=== PATIENT | male | born 1975 | race American Indian/Alaskan Native ===

== ENCOUNTER 2019-03-26 07:57 | Emergency (ER) | payer SELFPAY ==
[2019-03-26] MEDS ORDERED: Sodium Chloride 0.9% 10 ML Syringe FLUSH PRN ×2 (08:04→08:09)
[2019-03-26] MEDS ORDERED: Iopamidol 612 MG/ML 50 ML SDV IVPUSH ONE (08:09)
[2019-03-26] MEDS ORDERED: Iopamidol 612 MG/ML 100 ML Bottle IVPUSH ONE (08:09)
[2019-03-26] MEDS ORDERED: Lidocaine 1% with EPINEPHrine 1:100,000 20 ML MDV INJECT ONE (08:42)
--- NOTE | 2019-03-26 09:26 | CT ---
CT thoracic spine Technique: Multiple axial sections through the thoracic spine were obtained. Reconstructed coronal and sagittal images were obtained. Findings: Minimal anterior wedging of the superior endplate of T1 is noted. Other vertebral body heights are maintained. Other disc spaces are maintained. No fracture is otherwise seen. No abnormal subluxation is seen. No central canal stenosis or neural foraminal stenosis is seen. Soft tissue windows were obtained which show no soft tissue swelling around the spine. No traumatic disc herniation is identified. Impression: 1. Slight anterior wedging of the superior endplate of T1. This may be acute if patient has correlating symptoms. MRI could confirm if clinically needed. 2. Other portions of the CT thoracic spine study are unremarkable. Diagnostic code #3 This report was dictated in [place] Standard Time
--- NOTE | 2019-03-26 09:26 | CT ---
CT cervical spine Technique: Multiple axial sections were obtained from above C1 inferiorly to the bottom of T1. Reconstructed sagittal and coronal images were reviewed. Comparison: No prior cervical spine imaging is available. Findings: Vertebral body heights and disc spaces are preserved. Vertebral bodies and posterior arches are intact. No fracture is appreciated. No abnormal subluxation is seen. Mild degenerative change is noted within the lower apophyseal joints. Impression: 1. Minimal degenerative change. 2. No acute fracture or abnormal subluxation is seen on CT study of the cervical spine. Diagnostic code #2 This report was dictated in [place] Standard Time
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
--- NOTE | 2019-03-26 09:26 | CT ---
CT chest Technique: Multiple axial sections were obtained from above the lung apices inferiorly through the lung bases. Intravenous contrast was utilized. Comparison: No prior chest imaging is available. Findings: Aorta shows no aneurysm. Mediastinum and hilar region show no hematoma. No axillary adenopathy is seen. No pericardial thickening is identified. Minimal dependent atelectasis is noted posteriorly within both lungs. Lungs show no pulmonary contusions. No pleural effusions or pneumothorax is seen. Bone window settings were reviewed. No acute osseous finding is appreciated. Impression: 1. Nothing acute is appreciated on CT study of the chest. Diagnostic code #1 CT abdomen and pelvis Technique: Multiple axial sections were obtained from above the dome of the diaphragm inferiorly through the pubic symphysis. Intravenous contrast was utilized. No oral contrast has been given. Comparison: No prior abdominal imaging is available. Findings: Liver contains no focal abnormality. Spleen appears within normal limits. Adrenal glands show no nodule. Pancreas appears normal. Surgical clips are seen from prior cholecystectomy. Kidneys show symmetric contrast enhancement without hydronephrosis or mass. Aorta shows no aneurysm. No retroperitoneal adenopathy or mesenteric abnormalities are seen. No pelvic mass or adenopathy is seen. Small fat-containing bilateral inguinal hernias are noted. No free fluid or inflammatory change is seen. Appendix is seen which is normal. Bone window settings were reviewed. Mild degenerative change seen within the lower lumbar spine. No acute osseous finding is appreciated. Impression: 1. Nothing acute is appreciated on CT study of the abdomen and pelvis. 2. Other findings which are believed to be incidental. Diagnostic code #2 This report was dictated in [place] Standard Time
[2019-03-26] MEDS ORDERED: HYDROmorphone 1 MG/ML Syringe IVPUSH ONE (09:50)
--- NOTE | 2019-03-26 09:57 | CR ---
Left ankle: Four views of the left ankle were obtained. Comparison: No prior ankle exam. Ankle mortise is symmetric. Small plantar spur is noted. No acute fracture, dislocation or other bony abnormality is identified. Impression: 1. Small plantar spur. 2. Left ankle exam is otherwise unremarkable. Diagnostic code #2 This report was dictated in [place] Standard Time
--- NOTE | 2019-03-26 09:57 | CR ---
Right tibia and fibula: AP and lateral views of the right tibia and fibula were obtained. Comparison: No prior tibia or fibula study is available. No fracture or other bony abnormality is identified. Impression: 1. Nothing acute is appreciated on two-view right tibia and fibula exam. Diagnostic code #1 This report was dictated in [place] Standard Time
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
== END 2019-03-26 13:51 | disposition home or self-care (01) ==
LOC: JD.ED 07:57
DX: S22.019A Unspecified fracture of first thoracic vertebra, initial encounter for closed fracture (principal); S91.012A Laceration without foreign body, left ankle, initial encounter; S80.11XA Contusion of right lower leg, initial encounter; Z88.8 Allergy status to other drugs, medicaments and biological substances; V89.2XXA Person injured in unspecified motor-vehicle accident, traffic, initial encounter
CPT/HCPCS: 12002; 36415; 70450; 71260; 72125; 72128; 73590; 73610; 74177; 80053; 83690; 85025; 96374; 99285; J1170; Q9967; 99284

== ENCOUNTER 2019-03-29 18:46 | Emergency (ER) | payer MEDICAID, OTHER ==
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
[2019-03-29] MEDS ORDERED: FLU Vacc QS2019-20(6MOS+)/PF 60 MCG/0.5 ML SYRINGE IM ONE (21:00)
--- NOTE | 2019-03-30 07:13 | CT ---
CT cervical spine Technique: Multiple axial sections were obtained from above C1 inferiorly to the top of T4. Reconstructed sagittal and coronal images were reviewed. Comparison: No prior cervical spine imaging is available. Findings: Anterior wedging noted within the superior endplate of T1. Small detached anterior and superior fragment is seen. Findings could be acute. There is widening between the spinous processes of C7 and T1 which may possibly represent interspinous ligament rupture. MRI would confirm. Other vertebral body heights are maintained. Disc spaces are preserved. Artifact noted within the lower cervical and upper thoracic spine due to photon attenuation from the patient body habitus. No additional fracture is seen. No bony central or bony neural foraminal stenosis is noted. Visualized lung apices are clear. Impression: 1. Anterior wedging and small anterior and superior detached fragment. These findings may be acute. In addition, there are findings suggesting rupture of the interspinous ligament at C7-T1. MRI would be confirmatory. MRI studies should include a STIR sequence. 2. No additional abnormality is seen on CT study of the cervical spine. Diagnostic code #5 This report was dictated in Mountain Standard Time I agree with preliminary report from [facility], finalized on 03/29/19, 11:05 PM Central Time
== END 2019-03-30 00:10 ==
LOC: JD.ED 18:46 → EDSEX 18:46 → MERGE 18:46 → JD.ED 03-30 00:10
DX: S19.9XXA Unspecified injury of neck, initial encounter (principal); E66.9 Obesity, unspecified; Z68.35 Body mass index [BMI] 35.0-35.9, adult; Z23 Encounter for immunization; Z88.8 Allergy status to other drugs, medicaments and biological substances; Z88.1 Allergy status to other antibiotic agents; V57.5XXA Driver of pick-up truck or van injured in collision with fixed or stationary object in traffic accident, initial encounter; Y92.410 Unspecified street and highway as the place of occurrence of the external cause
CPT/HCPCS: 72125; 72125-26; 90686; 99284; 99285-25; G0008

== ENCOUNTER 2019-05-13 00:55 | Emergency (ER) | payer OTHER ==
[2019-05-13] MEDS ORDERED: Dicyclomine 10 MG Cap PO STA (01:27)
[2019-05-13] MEDS ORDERED: Ondansetron 4 MG/2 ML SDV IVPUSH ONE (01:28)
[2019-05-13] MEDS ORDERED: Lactated Ringers 1,000 ML IV ONE (01:28)
[2019-05-13] MEDS ORDERED: LORazepam 2 MG/ML SDV IVPUSH STA (01:29)
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
[2019-05-13] MEDS ORDERED: Famotidine 20 MG/2 ML SDV IVPUSH STA (01:51)
--- NOTE | 2019-05-13 07:05 | CR ---
Chest: Two views of the chest were obtained. Comparison: No prior chest x-ray, previous chest CT dated 03/26/19. Heart size and mediastinum are within normal limits. Lungs are clear with no acute parenchymal change. Bony structures appear within normal limits. Surgical clips are noted within the upper abdomen. Impression: 1. Nothing acute is identified on two-view chest x-ray. Diagnostic code #2 This report was dictated in MDT
--- NOTE | 2019-05-13 07:05 | CR ---
Abdomen: Upright view of the abdomen was obtained. Comparison: No prior abdominal x-ray, prior CT abdomen and pelvis exam of 03/26/19. Surgical clips are noted from prior cholecystectomy. Bowel gas pattern appears within normal limits. Bony structures are unremarkable. No abnormal calcifications or soft tissue abnormality is identified. No free air is seen. Impression: 1. Nothing acute is appreciated on upright abdominal x-ray. Diagnostic code #2 This report was dictated in MDT
== END 2019-05-13 02:53 | disposition home or self-care (01) ==
LOC: JD.ED 00:55
DX: R73.9 Hyperglycemia, unspecified (principal); F41.9 Anxiety disorder, unspecified; Z88.8 Allergy status to other drugs, medicaments and biological substances; Z88.1 Allergy status to other antibiotic agents; Z79.899 Other long term (current) drug therapy
CPT/HCPCS: 36415; 71046; 74018; 80053; 83735; 84443; 84484; 85007; 85027; 85379; 87081; 87430; 93005; 96361; 96374; 96375; 99285; A9270; J2060; J2405; J3490; J7120; 93010; 99284

== ENCOUNTER 2020-05-23 00:14 | Emergency (ER) | payer SELFPAY ==
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
== END 2020-05-23 01:36 | disposition home or self-care (01) ==
LOC: JD.ED 00:14
DX: T83.098A Other mechanical complication of other urinary catheter, initial encounter (principal); J45.909 Unspecified asthma, uncomplicated; E66.9 Obesity, unspecified; Z68.35 Body mass index [BMI] 35.0-35.9, adult; Z88.6 Allergy status to analgesic agent; Z88.1 Allergy status to other antibiotic agents; Z88.8 Allergy status to other drugs, medicaments and biological substances; Z79.899 Other long term (current) drug therapy
CPT/HCPCS: 99282; 99283